=== PATIENT | male | born 1935 | race Caucasian/White ===

== ENCOUNTER 2021-04-12 17:38 | Observation (INO) | payer MEDICARE ==
[~2021-04-12] VITALS: Ht 180.3 cm; Wt 90.3 kg
[2021-04-12 19:32] LABS: HEMOGLOBIN 13.3 gm/dl (14.0-17.5); RED BLOOD COUNT 4.47 M/UL (4.20-5.50); WHITE BLOOD COUNT 8.4 K/UL (4.5-11.0)
[2021-04-12 19:55] LABS: BUN/CREATININE RATIO 20 (0-10)
[2021-04-12] MEDS ORDERED: SERTRALINE HCL50 MG PO (23:58)
[2021-04-12] MEDS ORDERED: ATENOLOL25 MG PO (23:59)
[2021-04-13] MEDS ORDERED: METFORMIN HCL1000 MG PO
[2021-04-13] MEDS ORDERED: MUCINEX600 MG PO (00:01)
[2021-04-13] MEDS ORDERED: PRAVASTATIN SOD40 MG PO (00:01)
[2021-04-13] MEDS ORDERED: MONTELUKAST SOD10 MG PO (00:01)
[2021-04-13] MEDS ORDERED: ALAVERT D-12 A1 EACH PO (00:03)
[2021-04-13] MEDS ORDERED: ASPIRIN EC81 MG PO (00:04)
[2021-04-13] MEDS ORDERED: MECLIZINE HCL25 MG PO (00:05)
[2021-04-13] MEDS ORDERED: ZINC50 M3 PO (00:05)
[2021-04-13] MEDS ORDERED: VITAMIN C250 MG PO (00:06)
[2021-04-13] MEDS ORDERED: VITAMIN D21250 MCG PO (01:21)
[2021-04-13] MEDS ORDERED: DOXYCYCLINE HY100 MG PO (13:16)
[2021-04-15] MEDS ORDERED: HEARTBURN RELIE10 MG PO (08:50)
[2021-04-15] MEDS ORDERED: FLONASE 0.05% N16 GM (08:50)
[2021-04-15] MEDS ORDERED: FUROSEMIDE20 MG PO (08:50)
== END 2021-04-15 10:41 | disposition home or self-care (01) ==
LOC: ER1 17:38 → CDU 21:38 → M/S 21:38
PROVIDERS: Physician Assistant; ADMIT Internal Medicine
DX: R07.89 Other chest pain (principal); E11.9 Type 2 diabetes mellitus without complications; I10 Essential (primary) hypertension; U07.1 COVID-19; I25.10 Atherosclerotic heart disease of native coronary artery without angina pectoris; E78.5 Hyperlipidemia, unspecified; Z85.46 Personal history of malignant neoplasm of prostate; Z95.5 Presence of coronary angioplasty implant and graft; Z79.82 Long term (current) use of aspirin; Z79.84 Long term (current) use of oral hypoglycemic drugs; Z79.899 Other long term (current) drug therapy
CPT/HCPCS: ECHO; 36415; 71045; 78452; 80053; 82550; 82553; 82962; 83874; 83880; 84484; 85025; 85379; 93005; 93306; 96372; 99285; A9502; G0378; J1650; J2785; U0002

== ENCOUNTER 2021-06-03 10:56 | Emergency (ER) | payer MEDICARE ==
[~2021-06-03 10:56] MED LIST: ALAVERT D-12 A1 EACH PO; ASPIRIN EC81 MG PO; ATENOLOL25 MG PO; DOXYCYCLINE HY100 MG PO; FLONASE 0.05% N16 GM; FUROSEMIDE20 MG PO; HEARTBURN RELIE10 MG PO; MECLIZINE HCL25 MG PO; METFORMIN HCL1000 MG PO; MUCINEX600 MG PO; SERTRALINE HCL50 MG PO; VITAMIN C250 MG PO; VITAMIN D21250 MCG PO
[2021-06-03 12:02] LABS: HEMOGLOBIN 13.4 gm/dl (14.0-17.5); RED BLOOD COUNT 4.46 M/UL (4.20-5.50); WHITE BLOOD COUNT 8.3 K/UL (4.5-11.0)
[2021-06-03 12:23] LABS: BUN/CREATININE RATIO 16 (0-10)
[2021-06-03] MEDS ORDERED: AUGMENTIN 875-1 EACH PO (16:49)
[2021-07-31] MEDS ORDERED: PRAVASTATIN SOD40 MG PO (00:01)
[2021-07-31] MEDS ORDERED: MONTELUKAST SOD10 MG PO (00:01)
[2021-07-31] MEDS ORDERED: VITAMIN D325 MCG PO (00:05)
== END 2021-06-03 17:05 | disposition home or self-care (01) ==
LOC: ER1 10:56
PROVIDERS: Physician Assistant
DX: J32.3 Chronic sphenoidal sinusitis (principal); K08.89 Other specified disorders of teeth and supporting structures; E11.9 Type 2 diabetes mellitus without complications; I11.0 Hypertensive heart disease with heart failure; I50.9 Heart failure, unspecified; E78.5 Hyperlipidemia, unspecified
CPT/HCPCS: 70486; 70498; 71045; 80053; 82550; 82553; 83874; 84484; 85025; 93005; 99284; Q9967

== ENCOUNTER 2021-07-31 07:08 | Inpatient (IN) | payer MEDICARE ==
[~2021-07-31] VITALS: Ht 180.3 cm; Wt 95.7 kg
[~2021-07-31 07:08] MED LIST changes: +AUGMENTIN 875-1 EACH PO; +MONTELUKAST SOD10 MG PO; +PRAVASTATIN SOD40 MG PO; +VITAMIN D325 MCG PO
[2021-07-31 07:59] LABS: HEMOGLOBIN 12.2 gm/dl (14.0-17.5); RED BLOOD COUNT 4.34 M/UL (4.20-5.50); WHITE BLOOD COUNT 6.7 K/UL (4.5-11.0)
[2021-07-31 08:08] LABS: BUN/CREATININE RATIO 18 (0-10)
[2021-07-31] MEDS ORDERED: POTASSIUM CHLO10 MEQ PO (15:41)
[2021-07-31] MEDS ORDERED: OXYCODONE HCL5 M1 PO (15:42)
[2021-07-31] MEDS ORDERED: HYDROXYZINE HCL50 MG PO (15:43)
[2021-07-31] MEDS ORDERED: IBUPROFEN800 MG PO (15:44)
[2021-07-31] MEDS ORDERED: TYLENOL EXTRA500 MG PO (15:45)
[2021-07-31] MEDS ORDERED: NITROSTAT0.4 MG SL (15:46)
[2021-07-31] MEDS ORDERED: OXYBUTYNIN CHLO10 MG PO (15:49)
[2021-07-31] MEDS ORDERED: VITAMIN C 500500 MG PO (18:17)
[2021-08-01 07:28] LABS: HEMOGLOBIN 13.5 gm/dl (14.0-17.5)
[2021-08-01 07:31] LABS: RED BLOOD COUNT 4.9 M/UL (4.20-5.50)
[2021-08-01 07:51] LABS: BUN/CREATININE RATIO 13 (0-10)
[2021-08-02 08:25] LABS: BUN/CREATININE RATIO 20 (0-10)
[2021-08-02 09:40] LABS: HEMOGLOBIN 13.4 gm/dl (14.0-17.5); RED BLOOD COUNT 4.58 M/UL (4.20-5.50)
[2021-08-02 09:48] LABS: WHITE BLOOD COUNT 7.4 K/UL (4.5-11.0)
[2021-08-02 15:19] LABS: BUN/CREATININE RATIO 24 (0-10)
[2021-08-02 18:18] LABS: BUN/CREATININE RATIO 25 (0-10)
[2021-08-03 06:58] LABS: HEMOGLOBIN 11.7 gm/dl (14.0-17.5)
[2021-08-03 06:59] LABS: RED BLOOD COUNT 4.07 M/UL (4.20-5.50); WHITE BLOOD COUNT 11.3 K/UL (4.5-11.0)
[2021-08-03 07:15] LABS: BUN/CREATININE RATIO 24 (0-10)
[2021-08-03 17:30] LABS: BUN/CREATININE RATIO 28 (0-10)
[2021-08-04 04:20] LABS: RED BLOOD COUNT 4.12 M/UL (4.20-5.50); WHITE BLOOD COUNT 11.5 K/UL (4.5-11.0)
[2021-08-04 05:25] LABS: BUN/CREATININE RATIO 25 (0-10)
[2021-08-04 15:25] LABS: BUN/CREATININE RATIO 25 (0-10)
[2021-08-05 07:11] LABS: BUN/CREATININE RATIO 24 (0-10)
[2021-08-05] MEDS ORDERED: SODIUM CHLORIDE1 G1 PO (16:48)
[2021-08-05] MEDS ORDERED: DECADRON6 MG PO (16:48)
[2021-08-05] MEDS ORDERED: ISOSORBIDE MONO30 MG PO (16:48)
[2021-08-05] MEDS ORDERED: CEFUROXIME500 MG PO (16:48)
[2021-08-05 17:03] LABS: BUN/CREATININE RATIO 25 (0-10)
== END 2021-08-05 18:57 | disposition home health service (06) | DRG 177 ==
LOC: ER1 07:08 → MED SURG 4 08:44 → CDU 08:44 → MED SURG 4 17:24
PROVIDERS: Internal Medicine Nephrology; Physician Assistant; Physician Assistant Medical; Student in an Organized Health Care Education/Training Program; ADMIT Internal Medicine
PROC: 3E0333Z Introduction of Anti-inflammatory into Peripheral Vein, Percutaneous Approach (ICD-10-PCS; principal; 2021-08-02)
PROC: 8E0ZXY6 Isolation (ICD-10-PCS; 2021-08-05)
DX: U07.1 COVID-19 (principal); J12.82 Pneumonia due to coronavirus disease 2019; J96.01 Acute respiratory failure with hypoxia; E87.1 Hypo-osmolality and hyponatremia; R07.89 Other chest pain; I25.10 Atherosclerotic heart disease of native coronary artery without angina pectoris; E11.9 Type 2 diabetes mellitus without complications; I10 Essential (primary) hypertension; Z96.653 Presence of artificial knee joint, bilateral; E78.5 Hyperlipidemia, unspecified; I08.3 Combined rheumatic disorders of mitral, aortic and tricuspid valves; I45.10 Unspecified right bundle-branch block; Z90.89 Acquired absence of other organs; Z85.46 Personal history of malignant neoplasm of prostate; Z95.1 Presence of aortocoronary bypass graft; Z79.82 Long term (current) use of aspirin; Z79.4 Long term (current) use of insulin; Z90.49 Acquired absence of other specified parts of digestive tract; Z98.890 Other specified postprocedural states; Z82.49 Family history of ischemic heart disease and other diseases of the circulatory system
CPT/HCPCS: 36415; 71045; 80048; 80053; 82436; 82550; 82553; 82962; 83690; 83735; 83874; 83880; 84300; 84439; 84443; 84484; 84550; 85025; 85027; 93005; 96372; 96374; 96375; 96376; 97116; 97116-GP-CQ; 97162; 99285; G0378; J0692; J1100; J1650; J1940; Q0177; U0002